=== PATIENT | female | born 1990 | race Caucasian/White ===

== ENCOUNTER 2017-11-07 06:42 | Day surgery (SDC) | payer OTHER ==
[2017-11-06 11:01] VITALS: BMI 21.0
[~2017-11-07 06:42] MED LIST: Fluorouracil 100 MG, EPINEPHrine 0.3 MG, Dextrose 50% 3 ML in Ophthalmic Irrigation Sol... IVPB SCH
[2017-11-07] MEDS ORDERED: Phenylephrine 2.5% Ophth Soln 5 ML BOT ONE (07:01)
[2017-11-07] MEDS ORDERED: Cyclopentolate 1% Opth Drop 2 ML BOT ONE (07:01)
[2017-11-07] MEDS ORDERED: Fentanyl 100 MCG/2 ML VIAL ONE (08:05)
[2017-11-07] MEDS ORDERED: Midazolam HCl 2 mg/2 ml Vial ONE (08:05)
--- NOTE | 2017-11-07 10:05 | OP ---
DATE OF PROCEDURE: 11/07/2017 PREOPERATIVE DIAGNOSIS: Tractional retinal detachment, left eye. POSTOPERATIVE DIAGNOSIS: Tractional retinal detachment, left eye. PROCEDURE: Pars plana vitrectomy, tractional retinal detachment repair, left eye. SURGEON: Dr. Gilberto Norton ANESTHESIA: General endotracheal. PROCEDURE IN DETAIL: The patient was identified in the preoperative holding area. Appropriate infor med consent for the planned surgical procedure on the left eye had been obtained. The patient was tr ansported to the operative suite. Appropriate cardiopulmonary monitoring established. General endot anahy anesthesia was initiated. Local anesthesia obtained using retrobulbar block. The patient wa s prepped and draped in the usual sterile manner for ophthalmic surgery on the left eye. Lid speculu m was placed in the left eye. The 25-gauge trocars placed in conjunctiva and sclera supratemporally, inferotemporally, and supranasally. Infusion line was placed inferotemporally. Light pipe and vitr eous cutter were inserted into the eye. Core vitrectomy was performed. Vitreous hemorrhage was isabella eugene from the eye, revealing a tractional retinal detachment. The proliferans was removed from the ne rve and peeled slowly into the periphery releasing all area stalks of attachment using the vitreous c utter. This was peeled into the periphery until all stalks were isolated. No holes, breaks or tears were identified. Vitreous hemorrhage was removed from the eye. A combination of aspiration and dilshad kflush. Panretinal photocoagulation was placed on all non-macular areas of the retina. No holes, br eaks or tears were identified. Trocars were removed. Eye was noted to retain pressure well. Retrob ulbar Kenalog and subconjunctival Ancef were placed. Antibiotic ointment placed, and the eye was pat ched and shielded. The patient was taken to the postoperative recovery unit in good condition having suffered no immediate perioperative period. DISCHARGE INSTRUCTIONS: The patient was instructed to keep patch and shield on, avoid lifting or willam ding, and follow up in the morning with Dr. Norton.
[2017-11-07] MEDS ORDERED: Lidocaine 1% PF 5 ML VIAL ONE ×2 (12:27→12:28)
[2017-11-07] MEDS ORDERED: Glycopyrrolate 0.2 MG/ML 5 ML SYRINGE ONE (12:27)
[2017-11-07] MEDS ORDERED: Dexamethasone 20 MG/5 ML VIAL ONE (12:27)
[2017-11-07] MEDS ORDERED: ePHEDrine/0.9% NaCl/PF SYRINGE 50 mg/10 ml ONE (12:27)
[2017-11-07] MEDS ORDERED: PROPOFOL 200 MG/20 ML VIAL ONE (12:27)
[2017-11-07] MEDS ORDERED: Ondansetron HCl/PF 4 MG/2 ML Vial ONE (12:27)
[2017-11-07] MEDS ORDERED: Bupivacaine 0.75% 10 ML AMP ONE (12:28)
[2017-11-07] MEDS ORDERED: Maxitrol 0.1% Opth Oint 3.5 GM TUBE ONE (12:28)
[2017-11-07] MEDS ORDERED: Triamcinolone 40 MG/ML VIAL ONE (12:28)
[2017-11-07] MEDS ORDERED: CEFAZOLIN 1 GM VIAL ONE (12:28)
[2017-11-07] MEDS ORDERED: Lidocaine 4% PF 5 ML AMP ONE (12:28)
== END 2017-11-07 10:52 | disposition home or self-care (01) ==
LOC: SDC 06:42
PROVIDERS: ATTEND Ophthalmology Retina Specialist
PROC: 08QF3ZZ Repair Left Retina, Percutaneous Approach (ICD-10-PCS; principal; 2017-11-07)
PROC: 08T53ZZ Resection of Left Vitreous, Percutaneous Approach (ICD-10-PCS; principal; 2017-11-07)
DX: H33.42 Traction detachment of retina, left eye (principal); E11.9 Type 2 diabetes mellitus without complications; Z79.4 Long term (current) use of insulin
CPT/HCPCS: J0171; J0690; J1100; J2001; J2250; J2405; J2704; J3010; J3301; J3490; J9190